=== PATIENT | male | born 1970 | race Caucasian/White ===

== ENCOUNTER 2021-11-07 08:53 | Inpatient (IN) | payer MEDICARE, MEDICAID ==
[~2021-11-07] VITALS: Ht 175.3 cm; Wt 60.3 kg
[~2021-11-07 08:53] MED LIST: AZITHROMYCIN500 MG PO; OMNICEF 300 MG300 MG PO
[2021-11-07 09:17] LABS: HEMOGLOBIN 12.7 gm/dl (14.0-17.5); RED BLOOD COUNT 3.51 M/UL (4.20-5.50); WHITE BLOOD COUNT 4.9 K/UL (4.5-11.0)
[2021-11-07 10:17] LABS: BUN/CREATININE RATIO 21 (0-10)
[2021-11-07] MEDS ORDERED: ASPIRIN EC325 MG PO (11:28)
[2021-11-08 08:51] LABS: RED BLOOD COUNT 3.62 M/UL (4.20-5.50)
[2021-11-08 08:54] LABS: WHITE BLOOD COUNT 7.2 K/UL (4.5-11.0)
[2021-11-08 09:09] LABS: BUN/CREATININE RATIO 15 (0-10)
--- NOTE | 2021-11-08 13:12 | NUR ---
PT COMPLAINING OF CHRONIC BACK PAIN. CONTACTED MD AND ORDER OBTAINED FOR LIDOCAINE 5% PATCH. WILL CONTINUE TO MONITOR.
--- NOTE | 2021-11-09 03:25 | NUR ---
ATTEMPTING TO GET OUT OF BED , PULLING AT HIS IV AND STATES HES LEAVING. RESISTANT TO ANY ATTEMPTS TO PREVENT HIM FROM FALLING . EXTREMELY UNSTEADY. DEMANDING WE CALL HIS DAUGHTER. ATTEMPT WAS MADE TO CALL HIS DAUGHTER AND SISTER. NO CONTACT MADE. PREVIOUSLY ADMINISTERED ATIVAN INCREASED HIS CONFUSION AND IRRITATBILITY. PRECEDEX AT 0.1 INFUSING WAS INCREASED TO 0.2 MCGS. PATIENT REQUESTING , "TO BE KNOCKED OUT" DR FLORES NOTIFIED. ORDER RECEIVED.
--- NOTE | 2021-11-09 03:47 | NUR ---
GEODON 5 MG IM ADMINISTERED IN LEFT THIGH WITHOUT COMPLICATION. PRECEDEX AT 0.1 MCG. RECEIVED IN REPORT PRECEDEX WAS TO INFUSE AT 0.1MCGS AND CIWA PROTOCOL MEDS TO BE USED. HOWEVER , PREVIOUSLY CHARTED, ATIVAN APPEARED TO INCREASE CONFUSION AND AGGITATION. WILL CONTINUE TO MONITOR.
[2021-11-09 10:21] LABS: BUN/CREATININE RATIO 15 (0-10)
[2021-11-10 03:22] LABS: RED BLOOD COUNT 3.6 M/UL (4.20-5.50); WHITE BLOOD COUNT 6.9 K/UL (4.5-11.0)
[2021-11-10 03:58] LABS: BUN/CREATININE RATIO 17 (0-10)
[2021-11-11 10:09] LABS: HEMOGLOBIN 12.5 gm/dl (14.0-17.5); RED BLOOD COUNT 3.47 M/UL (4.20-5.50); WHITE BLOOD COUNT 5.1 K/UL (4.5-11.0)
[2021-11-11 10:35] LABS: BUN/CREATININE RATIO 18 (0-10)
[2021-11-11] MEDS ORDERED: PROTONIX 40 MG40 M1 PO (13:16)
[2021-11-11] MEDS ORDERED: ASPIRIN EC81 MG PO (13:16)
[2021-11-11] MEDS ORDERED: LISINOPRIL5 MG PO (13:16)
[2021-11-11] MEDS ORDERED: LOPRESSOR50 MG PO (13:16)
[2021-11-11] MEDS ORDERED: MAG-OX 400 TAB400 MG PO (13:16)
[2021-11-11] MEDS ORDERED: THERAGRAN M TAB1 EA PO (13:16)
[2021-11-11] MEDS ORDERED: NICOTINE PATCH1 EAC2 TD (13:16)
[2021-11-11] MEDS ORDERED: COMBIVENT RESPIM4 GM INH (13:16)
[2021-11-11] MEDS ORDERED: ACETAZOLAMIDE250 MG PO (13:16)
[2021-11-11] MEDS ORDERED: FOLIC ACID 1 MG1 MG PO (13:28)
[2021-11-14 16:11] LABS: ORGANISM ID Not indicated. (.); SPECIMEN SOURCE Urine (.); STREPTOCOCCUS PNEUMONIAE AG Negative (Negative)
== END 2021-11-11 15:11 | disposition home or self-care (01) | DRG 896 ==
LOC: ER1 08:53 → CCU 11:09 → CDU 11:09 → PROG CARE 13:27 → CCU 15:43
PROVIDERS: Emergency Medicine; Internal Medicine Critical Care Medicine; Internal Medicine Infectious Disease; ADMIT Internal Medicine
PROC: B24BZZZ Ultrasonography of Heart with Aorta (ICD-10-PCS; principal; 2021-11-08)
DX: F10.231 Alcohol dependence with withdrawal delirium (principal); I50.23 Acute on chronic systolic (congestive) heart failure; J96.01 Acute respiratory failure with hypoxia; Z20.822 Contact with and (suspected) exposure to COVID-19; J44.1 Chronic obstructive pulmonary disease with (acute) exacerbation; I42.6 Alcoholic cardiomyopathy; F11.20 Opioid dependence, uncomplicated; R00.0 Tachycardia, unspecified; F17.210 Nicotine dependence, cigarettes, uncomplicated; I16.0 Hypertensive urgency; D53.9 Nutritional anemia, unspecified; R74.01 Elevation of levels of liver transaminase levels; I08.1 Rheumatic disorders of both mitral and tricuspid valves; I27.20 Pulmonary hypertension, unspecified; E83.42 Hypomagnesemia; I11.0 Hypertensive heart disease with heart failure; E87.6 Hypokalemia; Z99.81 Dependence on supplemental oxygen; Z79.82 Long term (current) use of aspirin; Z88.8 Allergy status to other drugs, medicaments and biological substances; Z82.49 Family history of ischemic heart disease and other diseases of the circulatory system; Z71.6 Tobacco abuse counseling
CPT/HCPCS: ECHO; 0240U; 36415; 71045; 80053; 80307; 81001; 82550; 82553; 82607; 82746; 83605; 83735; 83880; 84132; 84439; 84443; 84484; 85025; 85027; 85610; 85730; 87040; 87278; 87899; 93005; 93306; 94640; 94664; 94760; 96374; 96375; 96376; 99285; C9113; G0480; J0360; J0456; J0696; J1650; J1940; J2060; J2920; J3360; J3411; J3475; J3480; J3486; J7030; J7050; J7060; U0002

== ENCOUNTER 2021-11-14 01:08 | Emergency (ER) | payer SELFPAY ==
[~2021-11-14 01:08] MED LIST changes: +ACETAZOLAMIDE250 MG PO; +ASPIRIN EC325 MG PO; +ASPIRIN EC81 MG PO; +COMBIVENT RESPIM4 GM INH; +FOLIC ACID 1 MG1 MG PO; +LISINOPRIL5 MG PO; +LOPRESSOR50 MG PO; +MAG-OX 400 TAB400 MG PO; +NICOTINE PATCH1 EAC2 TD; +PROTONIX 40 MG40 M1 PO; +THERAGRAN M TAB1 EA PO
[2021-11-14 01:59] LABS: RED BLOOD COUNT 4.38 M/UL (4.20-5.50); WHITE BLOOD COUNT 6.7 K/UL (4.5-11.0)
[2021-11-14 02:00] LABS: HEMOGLOBIN 16.1 gm/dl (14.0-17.5)
[2021-11-14 02:30] LABS: BUN/CREATININE RATIO 23 (0-10)
== END 2021-11-14 03:35 | disposition left against medical advice (07) ==
LOC: ER1 01:08
DX: R07.89 Other chest pain (principal); J44.9 Chronic obstructive pulmonary disease, unspecified; I11.0 Hypertensive heart disease with heart failure; F17.200 Nicotine dependence, unspecified, uncomplicated; I50.9 Heart failure, unspecified; R79.89 Other specified abnormal findings of blood chemistry; Z88.5 Allergy status to narcotic agent; F10.120 Alcohol abuse with intoxication, uncomplicated
CPT/HCPCS: 71045; 80053; 82550; 82553; 83690; 84484; 85025; 85379; 93005; 99283; G0480

== ENCOUNTER 2022-01-01 23:12 | Inpatient (IN) | payer MEDICARE ==
[~2022-01-01] VITALS: Ht 175.3 cm; Wt 65.5 kg
[2022-01-01 23:42] LABS: HEMOGLOBIN 13.8 gm/dl (14.0-17.5); RED BLOOD COUNT 3.86 M/UL (4.20-5.50); WHITE BLOOD COUNT 4.9 K/UL (4.5-11.0)
[2022-01-02 00:04] LABS: BUN/CREATININE RATIO 37 (0-10)
[2022-01-02] MEDS ORDERED: NICOTINE PATCH1 EAC2 TD (09:20)
[2022-01-02] MEDS ORDERED: ACETAZOLAMIDE250 MG PO (09:21)
[2022-01-02] MEDS ORDERED: COMBIVENT RESPIM4 GM INH (09:22)
[2022-01-02] MEDS ORDERED: FOLIC ACID1 MG PO (09:22)
[2022-01-02] MEDS ORDERED: MAGOX 400400 MG PO (09:23)
[2022-01-02] MEDS ORDERED: LISINOPRIL5 MG PO (09:23)
[2022-01-02] MEDS ORDERED: MULTIVITAMIN1 EACH PO (09:24)
[2022-01-02] MEDS ORDERED: METOPROLOL TART50 MG PO (09:24)
[2022-01-02] MEDS ORDERED: PROTONIX40 MG PO (09:25)
--- NOTE | 2022-01-02 13:42 | NUR ---
1442- CALLED DR BRIGGS PT REQUESTING PAIN MEDICATION. TYLENOL 650MG Q 4 HRS PRN.
--- NOTE | 2022-01-02 20:26 | NUR ---
PT TRANSFER TO ROOM [id number] BRIGGS REPORT GIVEN TO MIRIAM HUI
[2022-01-03 05:50] LABS: RED BLOOD COUNT 3.61 M/UL (4.20-5.50)
[2022-01-03 07:42] LABS: BUN/CREATININE RATIO 34 (0-10)
== END 2022-01-03 23:00 | disposition left against medical advice (07) | DRG 193 ==
LOC: ER1 23:12 → M/S 01-02 04:12 → PROG CARE 01-02 04:12 → CDU 01-02 04:12 → 2 EAST 01-02 04:38 → CDU 01-02 04:39 → M/S 01-02 07:40 → PROG CARE 01-02 20:30
PROVIDERS: Family Medicine; Internal Medicine; ADMIT Internal Medicine
PROC: 5A0935A Assistance with Respiratory Ventilation, Less than 24 Consecutive Hours, High Flow/Velocity Cannula (ICD-10-PCS; principal; 2022-01-02)
PROC: 5A09357 Assistance with Respiratory Ventilation, Less than 24 Consecutive Hours, Continuous Positive Airway Pressure (ICD-10-PCS; 2022-01-02)
PROC: 5A0935A Assistance with Respiratory Ventilation, Less than 24 Consecutive Hours, High Flow/Velocity Cannula (ICD-10-PCS; 2022-01-03)
DX: J12.9 Viral pneumonia, unspecified (principal); I50.23 Acute on chronic systolic (congestive) heart failure; J96.21 Acute and chronic respiratory failure with hypoxia; Z20.822 Contact with and (suspected) exposure to COVID-19; J96.22 Acute and chronic respiratory failure with hypercapnia; I42.6 Alcoholic cardiomyopathy; J44.1 Chronic obstructive pulmonary disease with (acute) exacerbation; J44.0 Chronic obstructive pulmonary disease with (acute) lower respiratory infection; F22 Delusional disorders; E87.6 Hypokalemia; R00.0 Tachycardia, unspecified; F10.10 Alcohol abuse, uncomplicated; I11.0 Hypertensive heart disease with heart failure; F17.210 Nicotine dependence, cigarettes, uncomplicated; I50.9 Heart failure, unspecified; J44.9 Chronic obstructive pulmonary disease, unspecified; Z99.81 Dependence on supplemental oxygen; Z91.14 Patient's other noncompliance with medication regimen; Z88.8 Allergy status to other drugs, medicaments and biological substances; Z82.49 Family history of ischemic heart disease and other diseases of the circulatory system; Z79.01 Long term (current) use of anticoagulants; Z79.82 Long term (current) use of aspirin; Z68.29 Body mass index [BMI] 29.0-29.9, adult
CPT/HCPCS: 0240U; 36600; 71046; 80048; 80053; 80202; 82550; 82553; 82803; 83605; 83880; 84484; 85025; 85379; 85610; 87081; 93005; 93970; 94640; 94660; 94664; 94760; 96374; 96375; 99285; J0692; J1940; J2060; J2270; J2405; J2543; J2920; J2930; J3360; J3370; J3411; J3475; J3480; J3486; J7030; J7070; Q9967

== ENCOUNTER 2022-01-04 04:51 | Emergency (ER) | payer SELFPAY ==
[~2022-01-04 04:51] MED LIST changes: +FOLIC ACID1 MG PO; +MAGOX 400400 MG PO; +METOPROLOL TART50 MG PO; +MULTIVITAMIN1 EACH PO; +PROTONIX40 MG PO
== END 2022-01-04 08:48 | disposition left against medical advice (07) ==
LOC: ER1 04:51
DX: M54.9 Dorsalgia, unspecified (principal); F10.20 Alcohol dependence, uncomplicated; I11.0 Hypertensive heart disease with heart failure; I50.9 Heart failure, unspecified; F17.200 Nicotine dependence, unspecified, uncomplicated; J44.9 Chronic obstructive pulmonary disease, unspecified; Z86.79 Personal history of other diseases of the circulatory system
CPT/HCPCS: 71045; 99283

== ENCOUNTER 2022-01-31 23:01 | Inpatient (IN) | payer MEDICARE ==
[~2022-01-31] VITALS: Ht 172.7 cm; Wt 64.4 kg
[2022-01-31 23:29] LABS: HEMOGLOBIN 13.3 gm/dl (14.0-17.5); RED BLOOD COUNT 3.64 M/UL (4.20-5.50); WHITE BLOOD COUNT 5.5 K/UL (4.5-11.0)
[2022-01-31 23:55] LABS: BUN/CREATININE RATIO 26 (0-10)
[2022-02-01] MEDS ORDERED: ASPIRIN EC81 MG PO (09:11)
[2022-02-02 04:55] LABS: HEMOGLOBIN 12.6 gm/dl (14.0-17.5); RED BLOOD COUNT 3.46 M/UL (4.20-5.50)
[2022-02-02 05:08] LABS: BUN/CREATININE RATIO 18 (0-10)
[2022-02-02] MEDS ORDERED: LISINOPRIL5 MG PO (19:33)
[2022-02-02] MEDS ORDERED: ASPIRIN EC81 MG PO (19:33)
[2022-02-02] MEDS ORDERED: ATORVASTATIN CA40 MG PO (19:33)
[2022-02-02] MEDS ORDERED: ALDACTONE 25MG25 MG PO (19:33)
== END 2022-02-02 19:36 | disposition left against medical advice (07) | DRG 287 ==
LOC: ER1 23:01 → CDU 02-01 06:18 → CCU 02-01 08:27
PROVIDERS: Family Medicine; Internal Medicine; ADMIT Internal Medicine
PROC: 4A023N7 Measurement of Cardiac Sampling and Pressure, Left Heart, Percutaneous Approach (ICD-10-PCS; principal; 2022-02-02)
PROC: B2111ZZ Fluoroscopy of Multiple Coronary Arteries using Low Osmolar Contrast (ICD-10-PCS; 2022-02-02)
DX: I25.10 Atherosclerotic heart disease of native coronary artery without angina pectoris (principal); F10.239 Alcohol dependence with withdrawal, unspecified; E44.0 Moderate protein-calorie malnutrition; I50.22 Chronic systolic (congestive) heart failure; J96.11 Chronic respiratory failure with hypoxia; F11.20 Opioid dependence, uncomplicated; I42.0 Dilated cardiomyopathy; F17.210 Nicotine dependence, cigarettes, uncomplicated; E87.6 Hypokalemia; M54.9 Dorsalgia, unspecified; G89.29 Other chronic pain; I11.0 Hypertensive heart disease with heart failure; J44.9 Chronic obstructive pulmonary disease, unspecified; R74.01 Elevation of levels of liver transaminase levels; Z91.14 Patient's other noncompliance with medication regimen; Z82.49 Family history of ischemic heart disease and other diseases of the circulatory system; Z95.1 Presence of aortocoronary bypass graft; Z79.82 Long term (current) use of aspirin; Z79.899 Other long term (current) drug therapy; Z88.5 Allergy status to narcotic agent; Z71.6 Tobacco abuse counseling; Z71.41 Alcohol abuse counseling and surveillance of alcoholic
CPT/HCPCS: 36415; 36600; 71045; 78452; 80053; 80307; 81001; 82550; 82553; 82607; 82746; 82803; 83735; 84100; 84439; 84443; 84484; 85025; 85027; 93005; 93017; 96365; 96366; 96375; 99152; 99285; A9502; C1769; C1887; C1894; G0480; J0360; J1644; J1650; J2060; J2250; J2270; J2785; J3010; J3411; J3475; J7030; Q9967; U0002

== ENCOUNTER 2022-02-16 02:07 | Inpatient (IN) | payer MEDICARE ==
[~2022-02-16] VITALS: Ht 177.8 cm; Wt 67.2 kg
[~2022-02-16 02:07] MED LIST changes: +ALDACTONE 25MG25 MG PO; +ATORVASTATIN CA40 MG PO
[2022-02-16 02:31] LABS: HEMOGLOBIN 14.4 gm/dl (14.0-17.5); RED BLOOD COUNT 3.96 M/UL (4.20-5.50); WHITE BLOOD COUNT 3.3 K/UL (4.5-11.0)
[2022-02-16 02:57] LABS: BUN/CREATININE RATIO 20 (0-10)
[2022-02-16 07:17] LABS: BUN/CREATININE RATIO 25 (0-10)
[2022-02-16] MEDS ORDERED: ATORVASTATIN CA40 MG PO (10:28)
[2022-02-16] MEDS ORDERED: LISINOPRIL5 MG PO (10:28)
[2022-02-16] MEDS ORDERED: ASPIRIN EC81 MG PO (10:29)
[2022-02-16] MEDS ORDERED: SPIRONOLACTONE25 MG PO (10:29)
[2022-02-16] MEDS ORDERED: TAB-A-VITE TA400 MC1 PO (18:44)
[2022-02-16] MEDS ORDERED: MAG-OX 400 TAB400 MG PO (18:44)
[2022-02-16] MEDS ORDERED: VITAMIN B-1100 M1 PO (18:44)
[2022-02-16] MEDS ORDERED: NITROGLYCERIN1 EAC2 TD (18:44)
[2022-02-16] MEDS ORDERED: NICOTINE PATCH1 EAC1 TD (18:44)
[2022-02-16] MEDS ORDERED: TOPROL XL25 MG PO (18:50)
[2022-02-16] MEDS ORDERED: ISOSORBIDE MONO30 MG PO (19:46)
[2022-02-16] MEDS ORDERED: K-TAB ER20 MEQ PO (19:46)
== END 2022-02-16 19:00 | disposition short-term general hospital (02) | DRG 303 ==
LOC: ER1 02:07 → CCU 03:55 → CDU 03:55 → CCU 07:15
PROVIDERS: ADMIT Internal Medicine
DX: I25.119 Atherosclerotic heart disease of native coronary artery with unspecified angina pectoris (principal); I50.22 Chronic systolic (congestive) heart failure; I42.0 Dilated cardiomyopathy; F17.200 Nicotine dependence, unspecified, uncomplicated; F10.129 Alcohol abuse with intoxication, unspecified; J44.9 Chronic obstructive pulmonary disease, unspecified; I42.6 Alcoholic cardiomyopathy; R74.01 Elevation of levels of liver transaminase levels; D69.6 Thrombocytopenia, unspecified; I11.0 Hypertensive heart disease with heart failure; I25.5 Ischemic cardiomyopathy; Z95.1 Presence of aortocoronary bypass graft; Z98.890 Other specified postprocedural states; Z82.49 Family history of ischemic heart disease and other diseases of the circulatory system; Z88.5 Allergy status to narcotic agent; Z91.14 Patient's other noncompliance with medication regimen
CPT/HCPCS: 36600; 71045; 80048; 80053; 82550; 82553; 82803; 83036; 84484; 85025; 93005; 94640; 94664; 94760; 99285; G0480; J2060

== ENCOUNTER 2022-03-25 21:55 | Observation (INO) | payer MEDICARE, MEDICAID ==
[~2022-03-25] VITALS: Ht 175.3 cm; Wt 66.8 kg
[~2022-03-25 21:55] MED LIST changes: +ISOSORBIDE MONO30 MG PO; +K-TAB ER20 MEQ PO; +NICOTINE PATCH1 EAC1 TD; +NITROGLYCERIN1 EAC2 TD; +SPIRONOLACTONE25 MG PO; +TAB-A-VITE TA400 MC1 PO; +TOPROL XL25 MG PO; +VITAMIN B-1100 M1 PO
[2022-03-25 23:19] LABS: HEMOGLOBIN 14.5 gm/dl (14.0-17.5); RED BLOOD COUNT 3.93 M/UL (4.20-5.50); WHITE BLOOD COUNT 4.4 K/UL (4.5-11.0)
[2022-03-25 23:50] LABS: BUN/CREATININE RATIO 27 (0-10)
[2022-03-26 18:39] LABS: BUN/CREATININE RATIO 27 (0-10)
[2022-03-27 04:41] LABS: WHITE BLOOD COUNT 3.5 K/UL (4.5-11.0)
[2022-03-27 05:03] LABS: BUN/CREATININE RATIO 25 (0-10)
[2022-03-27 05:12] LABS: HEMOGLOBIN 11.9 gm/dl (14.0-17.5); RED BLOOD COUNT 3.24 M/UL (4.20-5.50)
[2022-03-27 16:51] LABS: BUN/CREATININE RATIO 22 (0-10)
[2022-03-28 02:38] LABS: BUN/CREATININE RATIO 24 (0-10)
[2022-03-28] MEDS ORDERED: NICOTINE PATCH1 EAC1 TD (11:35)
[2022-03-28] MEDS ORDERED: ATORVASTATIN CA40 MG PO (11:35)
[2022-03-28] MEDS ORDERED: ISOSORBIDE MONO30 MG PO (11:35)
[2022-03-28] MEDS ORDERED: TOPROL XL25 MG PO (11:35)
[2022-03-28] MEDS ORDERED: VITAMIN B-1100 M1 PO (11:36)
[2022-03-28] MEDS ORDERED: TAB-A-VITE TA400 MC1 PO (11:36)
[2022-03-28] MEDS ORDERED: LISINOPRIL5 MG PO (11:36)
[2022-03-28] MEDS ORDERED: ASPIRIN EC81 MG PO (11:36)
[2022-03-28] MEDS ORDERED: PROTONIX 40 MG40 M1 PO (11:40)
[2022-03-28] MEDS ORDERED: LIBRIUM CAP 2525 MG PO (11:40)
[2022-03-28] MEDS ORDERED: BRILINTA 90 MG90 MG PO (11:48)
== END 2022-03-28 13:08 | disposition home or self-care (01) ==
LOC: ER1 21:55 → CDU 03-26 02:06 → PROG CARE 03-26 02:06
PROVIDERS: Internal Medicine; Physician Assistant; ADMIT Internal Medicine
DX: R07.89 Other chest pain (principal); I25.10 Atherosclerotic heart disease of native coronary artery without angina pectoris; F10.10 Alcohol abuse, uncomplicated; I25.5 Ischemic cardiomyopathy; R00.0 Tachycardia, unspecified; J44.9 Chronic obstructive pulmonary disease, unspecified; I11.0 Hypertensive heart disease with heart failure; I50.22 Chronic systolic (congestive) heart failure; Y90.8 Blood alcohol level of 240 mg/100 ml or more; E78.5 Hyperlipidemia, unspecified; F17.210 Nicotine dependence, cigarettes, uncomplicated; I25.2 Old myocardial infarction; Z79.82 Long term (current) use of aspirin; Z79.899 Other long term (current) drug therapy; Z88.5 Allergy status to narcotic agent; Z91.19 Patient's noncompliance with other medical treatment and regimen; Z95.5 Presence of coronary angioplasty implant and graft
CPT/HCPCS: 36415; 71045; 80048; 80053; 81001; 82550; 82553; 83690; 83880; 84484; 85025; 85379; 85610; 85730; 93005; 93308; 96374; 96375; 96376; 99285; G0378; G0480; J2060; J2270; J2405; J3360; J3411; J3475; J7030; Q9967

== ENCOUNTER 2022-04-07 21:47 | Emergency (ER) | payer MEDICAID ==
[~2022-04-07 21:47] MED LIST changes: +BRILINTA 90 MG90 MG PO; +LIBRIUM CAP 2525 MG PO
[2022-04-07 22:49] LABS: HEMOGLOBIN 11.9 gm/dl (14.0-17.5); RED BLOOD COUNT 3.29 M/UL (4.20-5.50)
[2022-04-07 23:27] LABS: BUN/CREATININE RATIO 18 (0-10)
== END 2022-04-08 12:35 | disposition home or self-care (01) ==
LOC: ER1 21:47
PROVIDERS: Emergency Medicine
DX: S00.31XA Abrasion of nose, initial encounter (principal); K85.90 Acute pancreatitis without necrosis or infection, unspecified; I25.2 Old myocardial infarction; I10 Essential (primary) hypertension; W19.XXXA Unspecified fall, initial encounter
CPT/HCPCS: 70450; 71045; 72125; 80053; 83690; 84484; 85025; 93005; 99285; G0480